=== PATIENT | female | born 1970 | race Caucasian/White ===

== ENCOUNTER → 2021-02-03 | Outpatient (CLI) | payer BC ==
[~2021-02-03] MED LIST: ACTICIN 5% CREA60 G1 TOP; ASPIR 8181 MG PO; CHILDREN'S ASPI81 M1 PO; CIPRO500 MG PO; FELDENE10 MG PO; FLEXERIL PO; HYDROCODONE-AP1 EAC6 PO; IBUPROFEN 800800 M1 PO; PERCOCET PO; TRAZODONE HCL50 MG PO
== END ==
LOC: M.LAB 15:00
PROVIDERS: ATTEND Podiatrist Foot & Ankle Surgery
DX: Z01.812 Encounter for preprocedural laboratory examination (principal); Z20.822 Contact with and (suspected) exposure to COVID-19

== ENCOUNTER → 2021-02-04 | Outpatient (CLI) | payer OTHER | LOC: M.LAB 15:53 | PROVIDERS: ATTEND Podiatrist Foot & Ankle Surgery | DX: M54.5 Low back pain (principal); Z98.890 Other specified postprocedural states ==